=== PATIENT | female | born 1985 ===

== ENCOUNTER 2019-11-30 18:59 | Emergency (ER) | payer OTHER ==
[~2019-11-30] VITALS: Ht 165.1 cm; Wt 52.6 kg
[~2019-11-30 18:59] MED LIST: BIOCEL TABLET1 EACH; PRENATAL + DHA1 EAC1
[2019-11-30] MEDS ORDERED: PROTONIX20 MG (19:11)
[2019-11-30] MEDS ORDERED: CARAFATE1 GM PO (21:16)
[2019-11-30] MEDS ORDERED: ZITHROMAX500 MG PO (21:16)
[2019-11-30] MEDS ORDERED: CLARITIN-D 241 EACH PO (21:16)
== END 2019-11-30 22:05 | disposition home or self-care (01) ==
LOC: ER 18:59
DX: J00 Acute nasopharyngitis [common cold] (principal)

== ENCOUNTER 2020-02-20 12:01 | Emergency (ER) | payer OTHER ==
[~2020-02-20] VITALS: Ht 165.1 cm; Wt 52.6 kg
[~2020-02-20 12:01] MED LIST changes: +CARAFATE1 GM PO; +CLARITIN-D 241 EACH PO; +PROTONIX20 MG; +ZITHROMAX500 MG PO
[2020-02-20] MEDS ORDERED: PEPCID40 MG (12:17)
== END 2020-02-20 14:07 | disposition home or self-care (01) ==
LOC: ER 12:01
DX: B34.9 Viral infection, unspecified (principal)